=== PATIENT | male | born 1975 | race Caucasian/White ===

== ENCOUNTER → 2017-08-29 07:38 | Outpatient (CLI) | payer MEDICAID, SELFPAY ==
[2017-08-29 09:22] LABS: Alanine Aminotransferase 30 U/L (12-78); Albumin Level 3.9 gm/dL (3.4-5.0); Albumin/Globulin Ratio 1.3 (1.1-1.8); Alkaline Phosphatase 124 U/L (46-116); Anion Gap 13.5 mEq/L (5-15); Bilirubin,Total 0.4 mg/dL (0.2-1.0); Blood Urea Nitrogen 14 mg/dL (7-18); Calcium 8.8 mg/dL (8.5-10.1); Carbon Dioxide 27 mmol/L (21.0-32.0); Chloride 103 mmol/L (98-107); Chol/HDL Ratio 8.6 (1-3.5); Cholesterol 171 mg/dL (140-200); Creatinine,Serum 0.84 mg/dL (0.70-1.30); Estimated Glomerular Filt Rate 101 ml/min (>60); GFR (African American) 122 ML/MIN (>60); HDL Cholesterol 20 mg/dL (27-67); Potassium 4.5 mmoL/L (3.5-5.1); Sodium 139 mmol/L (136-145); Thyroid Stimulating Hormone 3.05 uIU/ml (0.358-3.740); Total Protein,Serum 6.9 gm/dL (6.4-8.2)
[2017-08-29 11:59] LABS: Aspartate Amino Transferase 12 U/L (15-37); Glucose 145 mg/dL (74-106); Triglycerides 647 mg/dL (30-200)
== END ==
PROVIDERS: Visit Provider Physician Assistant
DX: Z13.29 Encounter for screening for other suspected endocrine disorder (principal); Z13.220 Encounter for screening for lipoid disorders
CPT/HCPCS: 36415; 80053; 80061; 84443

== ENCOUNTER → 2018-01-26 13:43 | Outpatient (CLI) | payer OTHER, SELFPAY ==
--- NOTE | 2018-01-26 13:55 | XR_ITS ---
XR shoulder RT min 2V COMPARISON: Portable upright chest 05/27/2012 HISTORY: Right shoulder pain TECHNIQUE: 3 views right shoulder FINDINGS: The clavicle is intact. The AC joint appears normal. The humeral head and glenoid are normal and there are no soft tissue calcifications. IMPRESSION: Negative right shoulder
--- NOTE | 2018-01-26 13:55 | XR_ITS ---
XR hand RT min 3V HISTORY: Right hand pain ITS.REASON: ACUTE SHOULDER PAIN ORDERING PHYSICIAN: Ana Marvin MD PATIENT AGE: 42 years COMPARISON: None FINDINGS: There is a subtle cortical break at the base of the distal phalanx of the thumb consistent with a nondisplaced fracture... There is minor joint space narrowing of the IP joint and minor spurring at the base of the distal phalanx as well. There is mild diffuse soft tissue swelling of the hand particularly web space between the thumb and index finger. IMPRESSION: Nondisplaced fracture base of distal phalanx of the thumb otherwise grossly negative right hand
--- NOTE | 2018-01-26 13:55 | XR_ITS ---
XR elbow RT 2V COMPARISON: None HISTORY: Right elbow pain TECHNIQUE: AP lateral and oblique views FINDINGS: There is no fracture or dislocation. There is no abnormal fat pad sign. There are no soft tissue foreign bodies. IMPRESSION: Negative right elbow
== END ==
PROVIDERS: PCP Family Medicine; Visit Provider Emergency Medicine
DX: M25.511 Pain in right shoulder (principal)
CPT/HCPCS: 73030; 73070; 73130

== ENCOUNTER → 2018-03-12 14:03 | Outpatient (CLI) | payer BC, SELFPAY | PROVIDERS: PCP Emergency Medicine; Visit Provider Emergency Medicine | DX: R06.83 Snoring (principal) | CPT/HCPCS: 95806 ==

== ENCOUNTER → 2019-11-24 13:11 | Outpatient (CLI) | payer OTHER, SELFPAY ==
[2019-11-25 19:00] LABS: Covid-19 Nasal PCR Sendout UK Not Detected
== END ==
PROVIDERS: PCP Family Medicine; Visit Provider Internal Medicine Adolescent Medicine
DX: Z03.818 Encounter for observation for suspected exposure to other biological agents ruled out (principal)
CPT/HCPCS: U0003

== ENCOUNTER → 2021-08-20 08:47 | Outpatient (CLI) | payer OTHER, SELFPAY ==
[2021-08-20 10:05] LABS: Alanine Aminotransferase 49 U/L (12-78); Albumin Level 4.2 g/dl (3.5-5.0); Albumin/Globulin Ratio 1.8 (1.1-1.8); Alkaline Phosphatase 81 U/L (38-126); Anion Gap 10.4 mEq/L (5-15); Aspartate Amino Transferase 33 U/L (17-59); Bilirubin,Total 0.4 mg/dl (0.2-1.3); Blood Urea Nitrogen 15 mg/dl (9-20); Calcium 9.1 mg/dl (8.4-10.2); Carbon Dioxide 24 mmol/L (22.0-30.0); Chloride 106 mmol/L (98-107); Chol/HDL Ratio 8.5 (1-3.5); Cholesterol 187 mg/dl (140-200); Estimated Glomerular Filt Rate 105 ml/min (>60); GFR (African American) 127 ML/MIN (>60); Globulin 2.4 g/dL (1.3-3.2); Glucose 148 mg/dl (74-100); HDL Cholesterol 22 mg/dl (40-60); Potassium 4.4 mmoL/L (3.5-5.1); Sodium 136 mmol/L (136-145); Total Protein,Serum 6.6 g/dl (6.3-8.2); Triglycerides 296 mg/dl (30-150); VLDL Cholesterol 59 mg/dL (0-40)
[2021-08-20 10:16] LABS: Direct LDL Cholesterol 106.32 mg/dL (100-129)
== END ==
PROVIDERS: Visit Provider Family Medicine
DX: E78.1 Pure hyperglyceridemia (principal); F41.8 Other specified anxiety disorders
CPT/HCPCS: 36415; 80053; 80061

== ENCOUNTER 2023-05-27 10:16 | Outpatient (CLI) | payer OTHER, SELFPAY ==
[2023-05-27 11:15] LABS: Hemoglobin A1C 6.9 % (4.0-6.0)
[2023-05-27 11:20] LABS: Chloride 102 mmol/L (98-107); Sodium 136 mmol/L (136-145)
[2023-05-27 11:21] LABS: Potassium 3.9 mmoL/L (3.5-5.1)
[2023-05-27 11:23] LABS: Alanine Aminotransferase 47 U/L (12-78); Albumin Level 4.2 g/dl (3.5-5.0); Albumin/Globulin Ratio 1.6 (1.1-1.8); Alkaline Phosphatase 104 U/L (38-126); Anion Gap 12.9 mEq/L (5-15); Aspartate Amino Transferase 33 U/L (17-59); Bilirubin,Total 0.6 mg/dl (0.2-1.3); Blood Urea Nitrogen 11 mg/dl (9-20); Carbon Dioxide 25 mmol/L (22.0-30.0); Cholesterol 133 mg/dl (140-200); Estimated Glomerular Filt Rate 91 ml/min (>60); GFR (African American) 110 ML/MIN (>60); Globulin 2.6 g/dL (1.3-3.2); Total Protein,Serum 6.8 g/dl (6.3-8.2); Triglycerides 142 mg/dl (30-150); VLDL Cholesterol 28 mg/dL (0-40)
[2023-05-27 11:24] LABS: Calcium 8.8 mg/dl (8.4-10.2); Chol/HDL Ratio 7.8 (1-3.5); Glucose 116 mg/dl (74-100); HDL Cholesterol 17 mg/dl (40-60)
[2023-05-27 11:55] LABS: Thyroid Stimulating Hormone 1.79 uIU/mL (0.465-4.68)
[2023-05-29 12:15] LABS: H. pylori Breath Test Negative (Negative)
== END 2023-05-27 23:59 ==
LOC: LAB 10:18
PROVIDERS: PCP Family Medicine; Visit Provider Family Medicine
DX: K21.9 Gastro-esophageal reflux disease without esophagitis (principal); R12 Heartburn; E78.5 Hyperlipidemia, unspecified; R73.01 Impaired fasting glucose
CPT/HCPCS: 36415; 80053; 80061; 83013; 83036; 84443

== ENCOUNTER 2023-12-22 15:51 | Outpatient (CLI) | payer OTHER, SELFPAY ==
--- NOTE | 2023-12-22 15:54 | XR_ITS ---
FINAL REPORT CLINICAL HISTORY: PAIN, old injury new pain FINDINGS: Right knee Three views were obtained. There is no acute fracture or dislocation. There are mild and moderate degenerative changes. Medial compartment narrowing is identified. There is a small joint effusion. IMPRESSION: Degenerative changes and small joint effusion. Reviewed, Interpreted and Dictated by Drake George III, MD Transcribed by Jocelyn Encinas Authenticated and [facility]
== END 2023-12-22 23:59 | disposition home or self-care (01) ==
LOC: RAD 15:51
PROVIDERS: PCP Physician Assistant; Visit Provider Physician Assistant
DX: M25.561 Pain in right knee (principal)
CPT/HCPCS: 73562

== ENCOUNTER 2024-01-10 17:05 | Outpatient (CLI) | payer OTHER, SELFPAY ==
--- NOTE | 2024-01-10 17:05 | MR_ITS ---
PROCEDURE INFORMATION: Exam: MR Right Lower Extremity Joint Without Contrast, Knee Exam date and time: 01/10/2024 5:29 PM Age: 48 years old Clinical indication: Pain; Knee; Right; Additional info: RT knee pain TECHNIQUE: Imaging protocol: Magnetic resonance imaging of the right lower extremity joint without contrast. Exam focused on the knee. COMPARISON: CR XR KNEE RT 3V 12/22/2023 4:07 PM FINDINGS: Bones/joints: There is an impaction fracture of the medial femoral condyle with associated marrow signal changes. There is severe chondromalacia within the medial femorotibial compartment. 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 There is a small joint effusion. Medial meniscus: The medial meniscus appears chronically torn and partially extruded. Lateral meniscus: Unremarkable. No tear. Anterior cruciate ligament: Unremarkable. No tear. Posterior cruciate ligament: There is thickening and increased T2 signal within the posterior cruciate ligament which likely reflects some element of tendinopathy. Medial capsule and supporting structures: Unremarkable. No tear. Lateral capsule and supporting structures: Unremarkable. No tear. Extensor mechanism of knee: Unremarkable. No tear. Soft tissues: Unremarkable. IMPRESSION: 1. Nondisplaced impacted fracture in the medial femoral condyle with associated edema. 2. 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 3. Thickening and increased T2 signal within the posterior cruciate ligament suggest tendinopathy and possible intrasubstance tearing.
== END 2024-01-10 23:59 | disposition home or self-care (01) ==
LOC: RAD 17:05
PROVIDERS: PCP Physician Assistant; Visit Provider Physician Assistant
DX: M25.561 Pain in right knee (principal); M23.91 Unspecified internal derangement of right knee
CPT/HCPCS: 73721

== ENCOUNTER → 2024-06-13 12:03 | Day surgery (SDC) | payer OTHER, SELFPAY ==
[2024-06-13 12:24] VITALS: BMI 32.7
[2024-06-13] MEDS: LACTATED RINGERS 1000ML 1,000 ML 50 ML IV (12:25)
[2024-06-13 12:29] VITALS: BP 126/76; PULSE 83; RESP 18; TEMP 36.3; O2SAT 98
[2024-06-13 12:45] LABS: POC Glucose,Bedside 106 (70-110)
[2024-06-13 14:03] VITALS: O2SAT 99
--- NOTE | 2024-06-13 14:03 | P.PNANES_ITS ---
[facility] Disclaimer: The information contained in this section may have been updated after the patient was seen, as this information can be updated by other users. Medical History Anxiety CASANDRA (obstructive sleep apnea) Surgical History History of cholecystectomy Family History Other Diabetes Hyperlipidemia Hypertension Stroke Social History Smoking Status: Current every day smoker tobacco type: e-cigarettes alcohol intake: former substance use type: denies use current occupational status: employed Travel in the last 8 weeks: None household members: spouse and family housing: house Have you lived/traveled outside [place] in past 30 days?: No Contact w/someone who lives/traveled outside US past 30 days?: No Exposure to someone with infectious disease in past 14 days?: No Do you have a fever (greater than 100.4 F or 38 C)?: No Have you tested positive for COVID-19: No Exposed to someone with COVID-19 in past 14 days?: No Do you have a sore throat?: No Do you have a cough?: No Do you have any weakness?: No Do you have any diarrhea?: No Are you experiencing any unusual bleeding?: No Do you have any muscle aches/pain?: No Do you have any abdominal pain?: No Are you experiencing loss of taste or smell?: No [facility] Anesthesia Checklist Patient Identification Patient Identification: Arm Band Structural Data Admitted From: Home Planned Operative Procedure/s: EGD Consent for Planned Operative Procedure(s) Verified: Yes Verified Documents: Surgical Consent and History and Physical NPO Status Verified Time NPO: 00:00 Additional verifications Anesthesia Reactions: No Hx Blood Transfusions: No Blood Transfusion Reaction: No Airway Assessment Mallampati Score:: Class II C-Spine Mobility Assessed: Yes TMJ Mobility Assessed: Yes Dentition: Good Dentition Neurological Assessment Level of Consciousness: Awake, Alert and Appropriate Anesthesia Plan Anesthesia Risk discussed: Yes Anesthesia Plan: Verified ASA Class: II Anesthesia Type: MAC
--- NOTE | 2024-06-13 14:09 | P.HP_ITS ---
History of Present Illness *Admission Date: 06/13/24 *Reason for visit:: Dyspepsia *History of present illness: Mr. Oconnor is a 48-year-old gentleman with longstanding dyspepsia who is here for diagnostic EGD. The examination is deemed medically necessary for upper endoscopy. The patient has been seen, interviewed and examined prior to the procedure by both myself and the anesthesia provider. [facility] Disclaimer: The information contained in this section may have been updated after the patient was seen, as this information can be updated by other users. Medical History Anxiety CASANDRA (obstructive sleep apnea) Surgical History History of cholecystectomy Family History Other Diabetes Hyperlipidemia Hypertension Stroke Social History Smoking Status: Current every day smoker tobacco type: e-cigarettes alcohol intake: former substance use type: denies use current occupational status: employed Travel in the last 8 weeks: None household members: spouse and family housing: house Have you lived/traveled outside US in past 30 days?: No Contact w/someone who lives/traveled outside [place] past 30 days?: No Exposure to someone with infectious disease in past 14 days?: No Do you have a fever (greater than 100.4 F or 38 C)?: No Have you tested positive for COVID-19: No Exposed to someone with COVID-19 in past 14 days?: No Do you have a sore throat?: No Do you have a cough?: No Do you have any weakness?: No Do you have any diarrhea?: No Are you experiencing any unusual bleeding?: No Do you have any muscle aches/pain?: No Do you have any abdominal pain?: No Are you experiencing loss of taste or smell?: No Other Medical History Have you received the Flu Vaccine for this season: No Have you received the Pneumonia Vaccine: No Review of Systems Review of Systems Review of systems (narrative): Negative *Cardiovascular Comments: Negative *Gastrointestinal Comments: Negative *Genitourinary Comments: Negative *Musculoskeletal Comments: Negative *Neurologic Comments: Negative Meds Home Medications and Allergies Home Medications ?Medication ?Instructions ?Recorded ?Confirmed ?Type citalopram 40 mg tablet 40 mg PO DAILY Depression 08/25/17 06/12/24 History esomeprazole magnesium 40 mg 40 mg PO DAILY 05/28/18 06/12/24 History capsule,delayed release (Nexium) fenofibrate nanocrystallized 145 145 mg PO DAILY 06/02/21 06/12/24 History mg tablet gabapentin 400 mg capsule 400 mg PO TID 09/07/23 06/12/24 History metformin 500 mg tablet,extended 500 mg PO ONCE 04/10/24 06/12/24 History release 24 hr New Prescriptions to Start Prescriptions: Allergies Allergy/AdvReac Type Severity Reaction Status Date / Time Penicillins Allergy Unknown Verified 06/13/24 12:26 allergy reaction Exam Data for Last 24 hours Vital signs and Labs for Last 24 Hours: Temp Pulse Resp BP Pulse Ox O2 Del Method O2 Flow Rate 97.4 F L 83 18 126/76 98 Nasal Cannula 5 06/13/24 12:29 06/13/24 12:29 06/13/24 12:29 06/13/24 12:29 06/13/24 12:29 06/13/24 14:03 06/13/24 14:03 Laboratory Results - last 24 hr 06/13/24 12:32: POC Glucose 106 I & O for Last 24 hours: Intake & Output 06/10/24 06/11/24 06/12/24 06/13/24 23:59 23:59 23:59 23:59 Weight 228 lb *Routine HEENT Exam Head: Present normocephalic Eye: Present EOMI and PERRL ENT: Present mucous membranes moist *Routine Neck Exam Neck: Present supple *Routine Respiratory Exam Respiratory: Present CTA bilaterally *Routine Cardiovascular Exam Cardiovascular: Present RRR *Routine Abdominal Exam Abdominal: Present soft and normoactive bowel sounds; Absent tenderness *Routine Rectal Exam Rectal:: deferred *Routine Genitalia Exam Genitalia:: deferred *Routine Extremities Exam Extremities: Absent cyanosis, clubbing or edema *Routine Skin Exam Skin: Present warm; Absent rash *Routine Neurological Exam Neurological: Present alert and oriented X3 Assessment and Plan *Assessment and plan (1) Dyspepsia: Status: Acute Category: Medical Code(s): R10.13 - Epigastric pain (2) Epigastric discomfort: Status: Acute Category: Medical Code(s): R10.13 - Epigastric pain Plan A/P: 1. Dyspepsia/epigastric abdominal discomfort postprandially is the preprocedural diagnosis. The patient will be anesthetized/sedated using MAC sedation. The patient has been seen and examined. Cardiac and lung assessment prior to the examination is stable. Proceed with planned upper endoscopy
--- NOTE | 2024-06-13 14:11 | [facility].PROCNOTE ---
[facility] Procedure Note Date: 06/13/24 Time: 14:17 Procedure Note:: Upper Endoscopy Procedure Report: Esophagogastroduodenoscopy with cold biopsies Endoscopost: Desmond Griffin II, MD Referring Physician: Paz Cameron PA-C Date of Procedure: June 13, 2024 Equipment: Olympus GIF 190 standard upper endoscope Sedation: MAC sedation Indications: Mr. Oconnor is a 48-year-old gentleman who has had longstanding dyspepsia with burning epigastric discomfort and states that this is a acid feeling . The patient has been on Nexium which controlled this for years but recently after eating spicy foods, he gets significant epigastric discomfort. Belching relieves the symptoms. He does get some bloating. He does feel that stress plays a role and gets more of this with anxiety which he is dealing with. He reports some intermittent nausea but no early satiety. He reports regular bowel function but does get some intermittent diarrhea. He reports no obstipation or incomplete defecation. He does report some excessive wiping. He reports no melena or bright red blood per rectum. He did have an EGD about 10 years ago and had some gastritis which was felt to be related to Advil. He has tried to reduce intake of soda/carbonated beverages but still drinks diet Mountain Dew. He reports no significant heartburn or reflux and has no dysphagia. Procedure: Prior to the procedure, a history and physical exam was performed, and patient's medications and allergies were reviewed. The risks, benefits and alternatives of the sedation and procedure were discussed with the patient. All questions were answered and informed consent was obtained. The patient was brought to the procedure room. Patient identification and proposed procedure were verified by the physician and the nurse. The patient was placed in a left lateral decubitus position and the scope was passed under direct vision. Throughout the procedure, the patient's blood pressure, pulse, and oxygen saturations were monitored continuously. The upper GI endoscopy was accomplished without difficulty. The patient tolerated the procedure well. Findings: The scope was passed directly into the upper esophagus and advanced to the third portion of the duodenum. The post bulbar duodenum and duodenal bulb were normal with normal mucosa and conniventes. The scope was withdrawn through a normal duodenal bulb and pylorus into the stomach. There was some mild linear reactive gastropathy of the antrum. There was some very mild chronic gastritis of the body and fundus. Biopsies were taken from the antrum and proximal lesser curvature to rule out H. pylori. Upon retroflexion there was no hiatal hernia. The scope was then withdrawn into the esophagus. There was no evidence of reflux esophagitis or Ann's. The remainder of the esophageal mucosa was normal. Impression: 1. Mild linear gastropathy of antrum and mild proximal chronic gastritis Plan: I will follow-up the biopsies to rule out H. pylori. I do suspect that most of his symptoms of dyspepsia are related to and driven by lower intestinal gas pressure gradients/high gas pressure buildup resulting in backflow of bile and peptic fluid from the duodenum into the stomach (duodenal reflux). This gas production (carbon dioxide, hydrogen, methane, etc.) from the lower intestinal tract is the byproduct of colonic bacterial fermentation. This colonic fermentation occurs when there is more carbohydrate (dietary starches, sugars and high residue plant fiber) substrate that does not get digested (in the middle or small intestine) or occurs when there is colonic fecal buildup and colonic bacterial overgrowth. This indeed leads to bloating and the gas pressure buildup with gas pressure gradients that do drive backflow and dyspepsia. We will discuss additional dietary measures and treatment options.
[2024-06-13 14:17] VITALS: BP 122/68; PULSE 74; RESP 16; TEMP 36.5; O2SAT 94
[2024-06-13 14:27] VITALS: BP 152/70; PULSE 76; RESP 18; O2SAT 95
[2024-06-13 14:37] VITALS: BP 118/85; PULSE 71; RESP 18; O2SAT 96
[2024-06-13 14:47] VITALS: BP 125/71; PULSE 68; RESP 18; TEMP 36.5; O2SAT 95
== END | disposition home or self-care (01) ==
PROVIDERS: PCP Physician Assistant; Visit Provider Internal Medicine Gastroenterology
PROC: 0DJ08ZZ Inspection of Upper Intestinal Tract, Via Natural or Artificial Opening Endoscopic (ICD-10-PCS; CPT 43239; principal; 2024-06-13 13:30)
DX: R10.13 Epigastric pain (principal); K31.9 Disease of stomach and duodenum, unspecified; K29.70 Gastritis, unspecified, without bleeding
CPT/HCPCS: 43239; 82962; J7120

== ENCOUNTER 2025-01-03 09:19 | Emergency (ER) | payer OTHER, SELFPAY ==
--- OUTSIDE RECORDS SUMMARY | 2024-06-19 05:00 | XMS_ITS ---
Author Organization [facility] Address [address] [place] [id number] Care Team Providers Care Desulphurizer Operator Name Role Phone Sathya Faria Primary Care Provider [phone] Cherie Holm Unavailable [phone] Paz Cameron Unavailable [phone] Allergies Allergen (clinical drug ingredient) Drug/Non Drug Allergy documented on EMR Reaction Allergy Type Onset Date Status Substance with penicillin structure and antibacterial mechanism of action (substance) Penicillins Unknown Drug Allergy Active Results Component Value Reference Range Notes Rapid Strep- Inhouse Reviewed date:06/19/2024 12:43:26 PM Interpretation: Performing Lab: Notes/Report: strep test Pos CBC Venipuncture (in house) Reviewed date:06/19/2024 12:43:36 PM Interpretation: Performing Lab: Notes/Report: wbc 4.2 3.5 - 10 lymph 22.3% 15 - 50 mid 7.3% 2 - 15 gran 70.4% 35 - 80 rbc 6.01 3.5 - 5.5 hgb 17.6 11.5 - 16.5 hct 52.7 35 - 55 mcv 87.6 75 - 100 mch 29.3 25 - 35 mchc 33.4 31 - 38 platlet 189 100 - 400 Glycohemoglobin A1c (in hous e) Reviewed date:06/25/2024 10:47:49 AM Interpretation: Performing Lab: Notes/Report: glycohemoglobin 6.8% 5 - 6.5 % P-Comprehensive Metabolic Pa fernando (CMP) Reviewed date:06/26/2024 01:14:55 PM Interpretation: Performing Lab: Notes/Report: Test performed by [facility] [address] [place] [address] , [address], [place] [address] Aries Huerta MD, Prom Burn Off Operator CLIA: [id number] Sodium 138 135-145 mmol/L Potassium 4.7 3.5-5.3 mmol/L Chloride 103 97-108 mmol/L CO2 26 22-32 mmol/L Glucose 119 65-99 mg/dL BUN 14 6-20 mg/dL Creatinine 0.82 0.70-1.30 mg/dL Calcium 9.7 8.6-10.4 mg/dL eGFR by Creatinine 109 >59 mL/min/1.73m2 Protein 7.2 6.0-8.3 g/dL Albumin 4.6 3.5-5.3 g/dL Alkaline Phosphatase 78 40-129 IU/L ALT (SGPT) 27 <5-55 IU/L AST (SGOT) 18 <5-46 IU/L Bilirubin, Total 0.2 <0.2-1.2 mg/dL A/G Ratio 1.8 1.1-2.5 P-Lipid Panel Reviewed date:06/26/2024 01:15:02 PM Interpretation: Performing Lab: Notes/Report: Test performed by [facility] [address] [place] [address] , [address], [place] [address] Aries Huerta MD, Prom Burn Off Operator CLIA: [id number] Cholesterol 149 <200 mg/dL Triglycerides 132 <150 mg/dL HDL Cholesterol 26 >39 mg/dL Cholesterol / HDL Ratio 5.73 0.00-4.99 Ratio Non-HDL Cholesterol 123 <130 mg/dL LDL Cholesterol (Calculation) 97 <130 mg/dL LDL Cholesterol Levels* Less than 100 mg/dL Optimal 100 to 129 mg/dL Near Optimal/ Above Optimal 130 to 159 mg/dL Borderline High 160 to 189 mg/dL High 190 mg/dL and above Very High * Categories as recommended by the 2004 ATPIII guidelines LDL/HDL Ratio 3.7 <3.3 Ratio LDL Cholesterol Patient History Test Date: 12/20/2023 LDL Results: 104 Units: mg/dL % Change: +50% Test Date: 03/20/2024 LDL Results: 102 Units: mg/dL % Change: -1% Test Date: 06/19/2024 LDL Results: 97 Units: mg/dL % Change: -4% REASON FOR VISIT 3 months Medications Medication SIG (Take, Route, Frequency, Duration) Notes Start Date End Date Status Citalopram Hydrobromide 40 mg take one tablet by mouth every day Orally Once a day; Duration: 90 days Active metFORMIN HCl ER 500 MG 1 tablet with ev ening meal Orally Once a day; Duration: 90 days Active Esomeprazole Magnesium 40 mg 1 capsule Orally once daily; Duration: 90 days Active Gabapentin 400 MG 1 cap(s) orally 3 ti mes a day 05/10/2024 Active Zithromax Z-Rocky 250 MG 2 pills first day then one daily for 4 days orally as directed; Duration: 5 days 06/19/2024 Active Fenofibrate 145 mg take one tablet by m outh every day Orally once daily; Duration: 90 days Active CareTouch CPAP & BIPAP Hose 1 DIRECTED Active Social History Tobacco Use: Social History Observation Description Date Details (start date - stop date) Current Smoker NA - NA CURRENT TOBACCO USE: Question Answer Notes Are you a: current smoker How many cigarettes a day do you smoke? 5 or les s Vital Signs Blood pressure systolic 134 mm Hg 06/19/19 25 Blood pressure diastolic 90 mm Hg 025 Heart Rate 76 /min 06/19/2024 Height 71.50 in 06/19/2024 Weight 228.4 lbs 06/19/2024 BMI 31.41 kg/m2 06/19/2024 Encounters Encounter Location Date Provider Diagnosis [facility] [address], [place] [phone] 06/19/2024 Paz Cameron Strep pharyngitis J0 2.0 ; Hypertriglyceridemia E78.1 ; Depression with anxiety F41.8 ; Gastroesophageal reflux disease without esophagitis K21.9 ; Mild obstructive sleep apnea G47.33 and Type 2 diabetes, HbA1c goal < 7% E11.9 Assessments Encounter Date Diagnosis (ICD Code) Assessment Notes Treatment Notes Treatment Clinical Notes Section Notes 06/19/2024 Strep pharyngitis (ICD-10 - J02.0) 06/19/2024 Hypertriglyceridemia (ICD-10 - E78.1) 06/19/2024 Depression with anxi ety (ICD-10 - F41.8) 06/19/2024 Gastroesophageal ref lux disease without esophagitis (ICD-10 - K21.9) 06/19/2024 Mild obstructive sle ep apnea (ICD-10 - G47.33) 06/19/2024 Type 2 diabetes, HbA 1c goal < 7% (ICD-10 - E11.9) Plan Of Treatment Medication Medication Name Sig Start Date Stop Date Notes Zithromax Z-Rocky 250 MG 2 pills first day then one daily for 4 days orally as directed; Duration: 5 days 06/19/2024 Next Appt Details Follow Up: via phone to repo rt test results, Reason: Progress Notes * LILIANA OCONNOR:1975 ([age] yo M)Acc No.[id number]:06/19/2024 Progress Notes Patient: DB MIKE Provider: MIKE Bender :1975 A ge:48 Y S ex:Male Date:06/19/2024 Address:[address], [place] , [id number] Pcp:Sathya Faria Subjective: * Chief Complaints: * 1 . 3 months. * HPI: C ardiology: The patient is here for a 3 month check up. Pt states he has not felt good since Monday. Pt states he started with a low grade fever and cough. Pt states he started Monday evening with very sore throat. Pt is fasting except for some tea with splenda. Denies : Chest Pain. D enies : Short of Breath. D enies : Dizziness. D enies : Palpitations. * ROS: D ERMATOLOGY: no R jaison. n o H grecia. G ASTROENTEROLOGY: no N ausea. n o V omiting. n o D iarrhea.? U ROLOGY: no D ifficulty urinating. n o B lood in urine. * Medical History: A nxiety, Esophageal reflux, Palpitations, L5-S1 disc bulge, MRI 2007, Low back pain, Lumbar facet arthropathy, Hypertriglyceridemia, CASANDRA. * Family History: F ather: alive, diabetes. M other: alive. P aternal Grand Father: diabetes. M aternal Grand Father: diabetes. 1 brother(s) . 3 son(s) - healthy. . Brother DM. * Social History: C URRENT TOBACCO USE A re you a: c urrent smoker, H ow many cigarettes a day do you smoke? 5 or less. C affeine: yes, frequency:. Past smoking status: yes. Alcohol: rare. * Medications: T aking CareTouch CPAP & BIPAP Hose MACHINE AND SUPPLIES 1 DIRECTED , Taking Fenofibrate 145 mg Tablet take one tablet by mouth every day Orally once daily , Taking Citalopram Hydrobromide 40 mg Tablet take one tablet by mouth every day Orally Once a day , Taking metFORMIN HCl ER 500 MG Tablet Extended Release 24 Hour 1 tablet with evening meal Orally Once a day , Taking Gabapentin 400 MG Capsule 1 cap(s) orally 3 times a day , Taking Esomeprazole Magnesium 40 mg Capsule Delayed Release 1 capsule Orally once daily , Discontinued Ozempic (0.25 or 0.5 MG/DOSE) 2 MG/3ML Solution Pen-injector 0.25 mg Subcutaneous once a week , Medication List reviewed and reconciled with the patient * Allergies: P enicillins. Objective: * Vitals: W t:228.4, Temp:98.4, BP:134/90, HR:76, Nurse:JOSE RAFAEL, Ht: 71.50, BMI:31.41. * Examination: G eneral Examination: General Appearance: N AD. H EENT: sclera and conjunctiva clear, PERRLA, TM's normal, translucent. O ral cavity: some erythema. N slim: ? supple, some lymphadenopathy. C hest: n ormal shape and expansion. H eart: R SR. L ungs: c lear to auscultation. A bdomen: bowel sounds present, soft and nontender, no organomegaly or masses, no guarding or rigidity. N eurologic Exam: I ntact, gait normal. S kin: n ormal, no rash. P eripheral pulses: n ormal (2+) bilaterally. E xtremities: n o leg edema. Assessment: * Assessment: 1. S trep pharyngitis - J02.0 (Primary) 2 . H ypertriglyceridemia - E78.1? 3. D epression with anxiety - F41.8 4 . G astroesophageal reflux disease without esophagitis - K21.9 5 . M ild obstructive sleep apnea - G47.33 6 . T ype 2 diabetes, HbA1c goal < 7% - E11.9 Plan: * Treatment: Value Reference Range s trep test Pos * Pat Haji 06/19/2024 9:15 :52 AM > , Provider reviewed results while patient in office.Paz Cameron 06/19/2024 12:43:23 PM > ?LAB: CBC Venipuncture (in house) (Collection Date & Time - 06/19/2024)* Value Reference Range w bc 4.2 3.5 - 10 * l ymph 22.3% 15 - 50 * m id 7.3% 2 - 15 * g ran 70.4% 35 - 80 * r bc 6.01 3.5 - 5.5 * h gb 17.6 11.5 - 16.5 * h ct 52.7 35 - 55 * m cv 87.6 75 - 100 * m ch 29.3 25 - 35 * m chc 33.4 31 - 38 * p latlet 189 100 - 400 * Pat Haji 06/19/2024 12:4 2:01 PM >Paz Cameron 06/19/2024 12:43:33 PM > 2.?Hypertriglyceridemia?LAB: P-Lipid Panel (Collection Date & Time - 06/19/2024 08:41 AM)* Value Reference Range C holesterol / HDL Ratio 5.73 H 0.00-4.99 - Ratio * C holesterol 149 <200 - mg/dL * H DL Cholesterol 26 L >39 - mg/dL * L DL Cholesterol (Calculation) 97 <130 - mg/d L * L DL/HDL Ratio 3.7 H <3.3 - Ratio * N on-HDL Cholesterol 123 <130 - mg/dL * T riglycerides 132 <150 - mg/dL * Paz Cameron 06/25/2024 10 :47:40 AM > see TE 3.?Type 2 diabetes, HbA1c goal < 7%?LAB: P-Comprehensive Metabolic Panel (CMP) (Collection Date & Time - 06/19/2024 08:41 AM)* Value Reference Range A /G Ratio 1.8 1.1-2.5 - * A lbumin 4.6 3.5-5.3 - g/dL * A lkaline Phosphatase 78 40-129 - IU/L * A LT (SGPT) 27 <5-55 - IU/L * A ST (SGOT) 18 <5-46 - IU/L * B ilirubin, Total 0.2 <0.2-1.2 - mg/dL * B UN 14 6-20 - mg/dL * C alcium 9.7 8.6-10.4 - mg/dL * C hloride 103 97-108 - mmol/L * C O2 26 22-32 - mmol/L * C reatinine 0.82 0.70-1.30 - mg/dL * G lucose 119 H 65-99 - mg/dL * P otassium 4.7 3.5-5.3 - mmol/L * S odium 138 135-145 - mmol/L * P rotein 7.2 6.0-8.3 - g/dL * e GFR by Creatinine 109 >59 - mL/min/1.73m2 * Paz Cameron 06/25/2024 10 :47:40 AM > see TE ?LAB: Glycohemoglobin A1c (in house) (Collection Date & Time - 06/19/2024)* Value Reference Range g lycohemoglobin 6.8% 5 - 6.5 % * Pat Haji 06/19/2024 12:4 4:06 PM > Paz Cameron 06/25/2024 10:47:40 AM > see TE * Procedure Codes: 8 7880 STREP A ASSAY W/OPTIC, Modifiers: QW , 39184 CAPILLARY BLOOD DRAW, 23994 GLYCATED HEMOGLOBIN TEST, Modifiers: QW , 36373 CBC WITH AUTO DIFF, 51468 VENIPUNCT, ROUTINE*, 3075F SYST BP GE 130 - 139MM HG, 3080F DIAST BP = 90 MM HG * Follow Up: v ia phone to report test results * Images: Billing Information: * Visit Code: 45498 Office Visit, Est Pt., Level 4. * Procedure Codes: 78877 STREP A ASSAY W/OPTIC. Modifiers: QW 13192 CAPILLARY BLOOD DRAW. 50416 GLYCATED HEMOGLOBIN TEST. Modifiers: QW 60976 CBC WITH AUTO DIFF. 42141 VENIPUNCT, ROUTINE*. 3075F SYST BP GE 130 - 139MM HG. 3080F DIAST BP = 90 MM HG. * Electronic signature of MIKE Walters on 01/03/2025 at 09:44 AM EDT Sign off status: Pending * Provider: MIKE Bender Date: 0 06/19/2024 Generated for Luis Antonio lema/Fabernabe/eTransmitting on: 0 01/03/2025 09:44 AM EDT History and Physical Notes * HPI (History of Present Illness) Category Sub-Category Detail Notes Category Not es Cardiology Short of Breath Chest Pain Palpitations Dizziness Examination Category Sub-Category Detail Notes Category Not es General Examination HEENT: sclera and c onjunctiva clear, PERRLA, TM's normal, translucent Heart: RSR Lungs: clear to auscultatio n Abdomen: bowel sounds present , soft and nontender, no organomegaly or masses, no guarding or rigidity Extremities: no leg edema General Appearance: NAD Skin: normal, no rash Neurologic Exam: Intact, gait normal Neck: supple, some lymphad enopathy Oral cavity: some erythema Peripheral pulses: normal (2+) bilatera lly Chest: normal shape and exp ansion
--- OUTSIDE RECORDS SUMMARY | 2024-06-26 06:15 | XMS_ITS ---
Author Organization [facility] Address [address] [facility] [address] [place] [id number] Care Team Providers Care Wharf Attendant Name Role Phone Sathya Faria Primary Care Provider Cherie Holm Unavailable [phone] Paz Cameron Unavailable [phone] Allergies Allergen (clinical drug ingredient) Drug/Non Drug Allergy documented on EMR Reaction Allergy Type Onset Date Status Substance with penicillin structure and antibacterial mechanism of action (substance) Penicillins Unknown Drug Allergy Active Results Component Value Reference Range Notes Influenza Screen (in house) Reviewed date:06/26/2024 01:14:32 PM Interpretation: Performing Lab: Notes/Report: results Neg Rapid Strep- Inhouse Reviewed date:06/26/2024 01:14:32 PM Interpretation: Performing Lab: Notes/Report: strep test Neg CBC Fingerstick (in house) Reviewed date:06/26/2024 01:14:32 PM Interpretation: Performing Lab: Notes/Report: wbc 4.3 3.5 - 10 lym 36.7% 15 - 50 mid 7.1% 2 - 15 gran 56.2% 35 - 80 rbc 4.73 3.5 - 5.5 hgb 14.0 11.5 - 16.5 hct 41.3 35 - 55 mcv 87.1 75 - 100 mch 29.6 25 - 35 mchc 34.0 31 - 38 plat 262 100 - 400 Covid test (in house) Reviewed date:06/26/2024 01:14:32 PM Interpretation: Performing Lab: Notes/Report: Result: Neg REASON FOR VISIT Throat Sore, Still Red and Abnormal Medications Medication SIG (Take, Route, Frequency, Duration) Notes Start Date End Date Status CareTouch CPAP & BIPAP Hose 1 DIRECTED Active Medrol 4 MG as directed orally d aily; Duration: 6 days 06/26/2024 Active metFORMIN HCl ER 500 MG 1 tablet with ev ening meal Orally Once a day; Duration: 90 days Active Citalopram Hydrobromide 40 mg take one tablet by mouth every day Orally Once a day; Duration: 90 days Active Fenofibrate 145 mg take one tablet by m outh every day Orally once daily; Duration: 90 days Active Esomeprazole Magnesium 40 mg 1 capsule Orally once daily; Duration: 90 days Active Gabapentin 400 MG 1 cap(s) orally 3 ti mes a day 05/10/2024 Active Social History Tobacco Use: Social History Observation Description Date Details (start date - stop date) Current Smoker NA - NA CURRENT TOBACCO USE: Question Answer Notes Are you a: current smoker How many cigarettes a day do you smoke? 5 or les s Vital Signs Blood pressure systolic 130 mm Hg 06/26/19 25 Blood pressure diastolic 90 mm Hg 025 Heart Rate 80 /min 06/26/2024 Height 71.50 in 06/26/2024 Weight 228.4 lbs 06/26/2024 BMI 31.41 kg/m2 06/26/2024 Encounters Encounter Location Date Provider Diagnosis [facility] [address] [id number] 06/26/2024 Paz Cameron Acute URI J06.9 Assessments Encounter Date Diagnosis (ICD Code) Assessment Notes Treatment Notes Treatment Clinical Notes Section Notes 06/26/2024 Acute URI (ICD-10 - J06.9) Plan Of Treatment Medication Medication Name Sig Start Date Stop Date Notes Medrol 4 MG as directed orally daily; Duration: 6 days 04/2025 Next Appt Details Follow Up: prn, Reason: Progress Notes * DB OCONNORDOB:1975 ([age] yo M)Acc No.[id number]:06/26/2024 Progress Notes Patient: DB MIKE Provider: MIKE Bender :1975 A ge:48 Y S ex:Male Date:06/26/2024 Address:[address] [place] [address] Rd, [place] , [id number] Pcp:Sathya Faria Subjective: * Chief Complaints: * 1 . Throat Sore, Still Red and Abnormal. * HPI: E NT/respiratory: The pt is here for a follow up on Strep throat. Pt states the throat is still red and swollen but not as sore. Pt states he has finished the antibiotics. 48 year old male presents with c/o sore throat. Denies : cough. D enies : Fever. * ROS: D ERMATOLOGY: no R jaison. [...] 1 capsule Orally once daily , Discontinued Zithromax Z-Rocky 250 MG Tablet 2 pills first day then one daily for 4 days orally as directed , Medication List reviewed and reconciled with the patient * Allergies: P enicillins. Objective: * Vitals: W t:228.4, Temp:98.4, BP:130/90, HR:80, Nurse:JOSE RAFAEL, Ht: 71.50, BMI:31.41. * Examination: E NT/Respiratory: General Appearance: N AD. E ars: a uditory canals normal bilaterally, TM's WNL. N ose : clear rhinorrhea. S inuses : non tender bilaterally. O ral cavity : erythema without exudate on pharynx, less than when previously examined. N slim : supple, bilateral tender lymphadenopathy. H eart : R RR, normal S1 S2, no murmurs. L ungs: c lear to auscultation bilaterally. Assessment: * Assessment: 1. Sade phillip URI - J06.9 (Primary) Plan: * Treatment: Value Reference Range r esults Neg * Pat Haji 06/26/2024 11: 19:26 AM > , Provider reviewed results while patient in office. ?LAB: Rapid Strep- Inhouse (Collection Date & Time - 06/26/2024)* Value Reference Range s trep test Neg * Pat Haji 06/26/2024 11: 20:17 AM > , Provider reviewed results while patient in office. ?LAB: CBC Fingerstick (in house) (Collection Date & Time - 06/26/2024)* Value Reference Range w bc 4.3 3.5 - 10 * l ym 36.7% 15 - 50 * m id 7.1% 2 - 15 * g ran 56.2% 35 - 80 * r bc 4.73 3.5 - 5.5 * h gb 14.0 11.5 - 16.5 * h ct 41.3 35 - 55 * m cv 87.1 75 - 100 * m ch 29.6 25 - 35 * m chc 34.0 31 - 38 * p lat 262 100 - 400 * Marcella Nelson 06/26/2024 11:12:2 3 AM > , Provider reviewed results while patient in office. ?LAB: Covid test (in house) (Collection Date & Time - 06/26/2024)* Value Reference Range R esult: Neg * Pat Haji 06/26/2024 11: 19:00 AM > , Provider reviewed results while patient in office. * Procedure Codes: 8 7804 Flu Test- Nasal Swab, Modifiers: QW , 60758 CAPILLARY BLOOD DRAW, 88404 CBC WITH AUTO DIFF, 11358 COVID TEST IN HOUSE, Modifiers: QW , 56528 STREP A ASSAY W/OPTIC, Modifiers: QW , 3075F SYST BP GE 130 - 139MM HG, 3080F DIAST BP = 90 MM HG * Follow Up: p rn * Images: Billing Information: * Visit Code: 19536 Office Visit, Est Pt., Level 3. * Procedure Codes: 17632 Flu Test- Nasal Swab. Modifiers: QW 93245 CAPILLARY BLOOD DRAW. 47896 CBC WITH AUTO DIFF. 95990 COVID TEST IN HOUSE. Modifiers: QW 61283 STREP A ASSAY W/OPTIC. Modifiers: QW 3075F SYST BP GE 130 - 139MM HG. 3080F DIAST BP = 90 MM HG. * Electronic signature of MIKE Walters on 01/03/2025 at 09:45 AM EDT Sign off status: Pending * Provider: MIKE Bender Date: 0 06/26/2024 Generated for Luis Antonio lema/Dorothy/eTransmitting on: 0 01/03/2025 09:45 AM EDT History and Physical Notes * HPI (History of Present Illness) Category Sub-Category Detail Notes Category Not es ENT/respiratory sore throat cough Fever Examination Category Sub-Category Detail Notes Category Not es ENT/Respiratory Oral cavity : erythema without exudate on pharynx, less than when previously examined Sinuses : non tender bilateral ly Ears: auditory canals norm al bilaterally, TM's WNL Neck : supple, bilateral te nder lymphadenopathy Heart : RRR, normal S1 S2, n o murmurs Lungs: clear to auscultatio n bilaterally General Appearance: NAD Nose : clear rhinorrhea
--- OUTSIDE RECORDS SUMMARY | 2024-09-18 05:00 | XMS_ITS ---
Author Organization [facility] Address [address] [facility] [address] [place] [id number] Care Team Providers Care Cell Manager Name Role Phone Sathya Faria Primary Care Provider Cherie Holm Unavailable [phone] Paz Cameron Unavailable [phone] Allergies Allergen (clinical drug ingredient) Drug/Non Drug Allergy documented on EMR Reaction Allergy Type Onset Date Status Substance with penicillin structure and antibacterial mechanism of action (substance) Penicillins Unknown Drug Allergy Active REASON FOR VISIT 3 month check, Needs labs & colon cancer screening Social History Tobacco Use: Social History Observation Description Date Details (start date - stop date) Current Smoker NA - NA CURRENT TOBACCO USE: Question Answer Notes Are you a: current smoker How many cigarettes a day do you smoke? 5 or les s Encounters Encounter Location Date Provider Diagnosis You [address] [facility] [address] [place] [phone] 09/18/2024 Paz Cameron Plan Of Treatment No Information Progress Notes * DANIOLDB HarrisDOB:1975 ([age] yo M)Acc No.[id number]:09/18/2024 Progress Notes Patient: DB MIKE Provider: MIKE Bender :1975 A ge:48 Y S ex:Male Date:09/18/2024 Address:[address], [place] Pcp:Sathya Faria Subjective: * Chief Complaints: * 1 . 3 month check. 2. Needs labs & colon cancer screening. * HPI: H PI: 48 year old male presents with c/o Patient is here today for?Pt is here today for a 3 month check up. * ROS: D ERMATOLOGY: no R jaison. [...] Past smoking status: yes. Alcohol: rare. * Allergies: P enicillins. Objective: * Vitals: Assessment: Plan: * Treatment: * Images: Billing Information: * Visit Code: * Procedure Codes: * Electronic signature of MIKE Walters on 01/03/2025 at 09:44 AM EDT Sign off status: Pending * Provider: MIKE Bender Date: 0 09/18/2024 Generated for Luis Antonio lema/Dorohty/Fransico on: 0 01/03/2025 09:44 AM EDT History and Physical Notes * HPI (History of Present Illness) Category Sub-Category Detail Notes Category Not es HPI Patient is here today for Pt is here today for a 3 month check up
--- NOTE | 2025-01-03 09:16 | ECG_ITS ---
APPROVED REPORT Exam: Resting ECG HR:83 bpm ECG Measurements Heart Rate 83 AXES SD 142 P 76 QRSd 113 QRS 75 QT 375 T 42 QTc 415 Conclusion SINUS RHYTHM INCOMPLETE RIGHT BUNDLE BRANCH BLOCK [90+ ms QRS DURATION, TERMINAL R IN V1/V2, 40+ ms S IN I/aVL/V4/V5/V6] NO STEMI Electronically signed by : ANG BAEZ, 01/03/2025 19:06:55
--- NOTE | 2025-01-03 09:32 | XR_ITS ---
PROCEDURE INFORMATION: Exam: XR Chest Exam date and time: 01/03/2025 9:42 AM Age: 49 years old Clinical indication: Sternal or substernal pain; Additional info: Cp TECHNIQUE: Imaging protocol: Radiologic exam of the chest. Views: 2 views. COMPARISON: CR XR CHEST 2V 02/05/2019 11:48 AM FINDINGS: Lungs: Mild bronchial wall thickening centrally on the right. Lungs are well aerated without a focal area of consolidation. Pleural spaces: Unremarkable. No pleural effusion. No pneumothorax. Heart/Mediastinum: Unremarkable. No cardiomegaly. Bones/joints: Unremarkable. IMPRESSION: Lungs are well aerated without a focal area of consolidation.
[2025-01-03 09:36] VITALS: BP 125/73; PULSE 89; RESP 14; TEMP 37.2; O2SAT 100; BMI 30.7
[2025-01-03 09:40] LABS: Hematocrit 38.3 % (42.0-52.0); Hemoglobin 13.1 g/dL (14.1-18.0); Mean Corpuscular HGB Conc 34.2 g/dL (31.8-35.4); Mean Corpuscular Hemoglobin 29.6 pg (27.0-31.2); Mean Corpuscular Volume 86.5 fl (80-94); Platelet Count 254 K/mm3 (142-424); Red Blood Count 4.43 M/mm3 (4.60-6.20); White Blood Count 3.8 K/mm3 (4.8-10.8)
[2025-01-03 09:43] LABS: Lipase 47 U/L (23-300)
--- OUTSIDE RECORDS SUMMARY | 2025-01-03 09:45 | XMS_ITS | Patient Health Record ---
Author Organization [facility] Address [address] [place] [id number] Care Team Providers Care Safe Deposit Attendant Name Role Phone Sathya Faria Primary Care Provider [phone] Cherie Holm Unavailable [phone] Natalia Gallegos Unavailable [phone] Paz Cameron Unavailable [phone] Allergies Allergen (clinical drug ingredient) Drug/Non Drug Allergy documented on EMR Reaction Allergy Type Onset Date Status Substance with penicillin structure and antibacterial mechanism of action (substance) Penicillins Unknown Drug Allergy Active Results Component Value Reference Range Notes P-Lipid Panel Reviewed date:06/26/2024 01:15:02 PM Interpretation: Performing Lab: Notes/Report: Test performed by [facility] [address] , [address], [place] [address] Aries Huerta MD, Bed Laborer CLIA: [id number] Cholesterol 149 <200 mg/dL Triglycerides 132 <150 [...] Results: 97 Units: mg/dL % Change: -4% P-Comprehensive Metabolic Pa fernando (CMP) Reviewed date:06/26/2024 01:14:55 PM Interpretation: Performing Lab: Notes/Report: Test performed by [facility] [address] [place] [address] , [place] [address] Aries Huerta MD, Bed Laborer MARYIA: [id number] Sodium 138 135-145 mmol/L Potassium 4.7 3.5-5.3 [...] 0.2 <0.2-1.2 mg/dL A/G Ratio 1.8 1.1-2.5 Glycohemoglobin A1c (in hous e) Reviewed date:06/25/2024 10:47:49 AM Interpretation: Performing Lab: Notes/Report: glycohemoglobin 6.8% 5 - 6.5 % CBC Venipuncture (in house) Reviewed date:06/19/2024 12:43:36 [...] - 38 platlet 189 100 - 400 Rapid Strep- Inhouse Reviewed date:06/19/2024 12:43:26 PM Interpretation: Performing Lab: Notes/Report: strep test Pos Covid test (in house) Reviewed date:06/26/2024 01:14:32 PM Interpretation: Performing Lab: Notes/Report: Result: Neg CBC Fingerstick (in house) Reviewed date:06/26/2024 [...] - 38 plat 262 100 - 400 Rapid Strep- Inhouse Reviewed date:06/26/2024 01:14:32 PM Interpretation: Performing Lab: Notes/Report: strep test Neg Influenza Screen (in house) Reviewed date:06/26/2024 01:14:32 PM Interpretation: Performing Lab: Notes/Report: results Neg Glycohemoglobin A1c (in hous e) Reviewed date:03/21/2024 04:47:16 PM Interpretation:6.8 Performing Lab: Notes/Report: 6.8 glycohemoglobin 6.8% 5 - 6.5 % P-Comprehensive Metabolic Pa fernando (CMP) Reviewed date:03/21/2024 04:47:16 PM Interpretation: Performing Lab: Notes/Report: Test performed by [facility] [address] [place] [address] , [address], [place] [address] Aries Huerta MD, Bed Laborer CLIA: [id number] Sodium 138 135-145 mmol/L Potassium 4.4 3.5-5.3 mmol/L Chloride 103 97-108 mmol/L CO2 24 22-32 mmol/L Glucose 122 65-99 mg/dL BUN 12 6-20 mg/dL Creatinine 0.82 0.70-1.30 mg/dL Calcium 9.9 8.6-10.4 mg/dL eGFR by Creatinine 109 >59 mL/min/1.73m2 Protein 7.0 6.0-8.3 g/dL Albumin 4.7 3.5-5.3 g/dL Alkaline Phosphatase 78 40-129 IU/L ALT (SGPT) 25 <5-55 IU/L AST (SGOT) 16 <5-46 IU/L Bilirubin, Total 0.3 <0.2-1.2 mg/dL A/G Ratio 2.0 1.1-2.5 P-Lipid Panel Reviewed date:03/21/2024 04:47:16 PM Interpretation: Performing Lab: Notes/Report: Test performed by [facility] [address] [place] [address] , [address], [place] [address] Aries Huerta MD, Bed Laborer CLIA: [id number] Cholesterol 163 <200 mg/dL Triglycerides 172 <150 mg/dL HDL Cholesterol 27 >39 mg/dL Cholesterol / HDL Ratio 6.04 0.00-4.99 Ratio Non-HDL Cholesterol 136 <130 mg/dL LDL Cholesterol (Calculation) 102 <130 mg/dL LDL Cholesterol Levels* Less than 100 mg/dL Optimal 100 to 129 mg/dL Near Optimal/ Above Optimal 130 to 159 mg/dL Borderline High 160 to 189 mg/dL High 190 mg/dL and above Very High * Categories as recommended by the 2004 ATPIII guidelines LDL/HDL Ratio 3.8 <3.3 Ratio LDL Cholesterol Patient History Test Date: 12/23/2022 LDL Results: 69 Units: mg/dL % Change: - Test Date: 12/20/2023 LDL Results: 104 Units: mg/dL % Change: +50% Test Date: 03/20/2024 LDL Results: 102 Units: mg/dL % Change: -1% P-TSH reflex to FT4 Reviewed date:03/21/2024 04:47:16 PM Interpretation: Performing Lab: Notes/Report: Test performed by [facility], [address] , [address], [place] [address] Aries Huerta MD, Bed Laborer CLIA: [id number] TSH reflex to FT4 2.27 0.43-5.25 mU/L Medications Medication SIG (Take, Route, Frequency, Duration) Notes Start Date End Date Status Citalopram Hydrobromide 40 mg 1 tablet Orally Once a day; Duration: 30 days Active Care[facility] CPAP & BIPAP Hose 1 DIRECTED Active Gabapentin 400 MG 1 cap(s) orally 3 ti mes a day; Duration: 30 days 11/22/2024 Active Medrol 4 MG as directed orally d aily; Duration: 6 days 06/26/2024 Active Esomeprazole Magnesium 40 mg 1 capsule Orally once daily; Duration: 30 days Active metFORMIN HCl ER 500 MG 1 tablet with ev ening meal Orally Once a day; Duration: 90 days Active Fenofibrate 145 mg 1 tablet Orally once daily; Duration: 30 days Active Immunizations Vaccine Route Administration Date Status Comme nts DT, 7 YEARS OR OLDER Unknown 07/14/1996 Administered Social History Tobacco Use: Social History Observation Description Date Details (start date - stop date) Current Smoker NA - NA CURRENT TOBACCO USE: Question Answer Notes Are you a: current smoker How many cigarettes a day do you smoke? 5 or les s Problems Problem Type SNOMED Code ICD Code Onset Dates Problem Status W/U Status Risk Notes Problem Hypertension (73573181) Hypertension NOS (401.9) Active confirmed Problem Hyperglycemia (37269233) Hyperglycemia (R73.9) Active confirmed Problem Hyperlipidemia (91689990) Hyperlipidemia (E78.5) Active confirmed Problem Hypertriglyceridemia (525723599) Hypertriglyceridemia (E78.1) Active confirmed Problem Mixed anxiety and depressive disorder (464746887) Depression with anxiety (F41.8) Active confirmed Problem Screening for malignant neoplasm of prostate (555267996) Screening for prostate cancer (Z12.5) Active confirmed Problem Dysthymia (01135382) Dysthymic d isorder (F34.1) Active confirmed Problem Chronic pain syndrom e (445012733) Chronic pain syndrome (G89.4) Active confirmed Problem Gastroesophageal reflux disease without esophagitis (602065714) Gastroesophageal reflux disease without esophagitis (K21.9) Active confirmed Problem Sciatica (31480284) Bilateral lo w back pain with left-sided sciatica (M54.42) Active confirmed Problem Displacement of lumbar intervertebral disc without myelopathy (97298287) Bulging lumbar disc (M51.26) Active confirmed Problem Arthropathy of lumba r facet joint (445352849) Lumbar facet arthropathy (M46.96) Active confirmed Problem Obstructive sleep apnea syndrome (02489162) CASANDRA (obstructive sleep apnea) (G47.33) Active confirmed Problem Seasonal allergic rhinitis (804610503) Seasonal allergic rhinitis, unspecified allergic rhinitis trigger (J30.2) Active confirmed Problem Obstructive sleep apnea syndrome (02762639) Mild obstructive sleep apnea (G47.33) Active confirmed Problem Type II diabetes mellitus without complication (346983858) Type 2 diabetes, HbA1c goal < 7% (E11.9) Active confirmed Vital Signs Heart Rate 80 /min 06/26/2024 Blood pressure diastolic 90 mm Hg 06/26/2024 Height 71.50 in 06/26/2024 Blood pressure systolic 130 mm Hg 06/26/2024 Weight 228.4 lbs 06/26/2024 BMI 31.41 kg/m2 06/26/2024 Encounters Encounter Location Date Provider Diagnosis [facility] [place] [address] [id number] 03/20/2024 Paz Crowdy Hypertriglyceridemia E78.1 ; Depression with anxiety F41.8 ; Gastroesophageal reflux disease without esophagitis K21.9 ; Mild obstructive sleep apnea G47.33 and Type 2 diabetes, HbA1c goal < 7% E11.9 [facility] [place] [facility] [place] [facility] [address] [id number] 06/19/2024 Paz Crowdy Strep pharyngitis J0 2.0 ; Hypertriglyceridemia E78.1 ; Depression with anxiety F41.8 ; Gastroesophageal reflux disease without esophagitis K21.9 ; Mild obstructive sleep apnea G47.33 and Type 2 diabetes, HbA1c goal < 7% E11.9 [facility] [address] [place], [place] [id number] 06/26/2024 Paz Rakesh Acute URI J06.9 [facility] [address] [facility] [address] [place], [place] [id number] 02/08/2024 R Enrrique Gallegos Bulging lumbar disc M51.26 [facility] [address] [place], [place] [id number] 03/07/2024 Sathya Faria Type 2 diabetes, HbA 1c goal < 7% E11.9 [facility] [address] [place], [place] [id number] 03/21/2024 Paz Cameron [facility] [address] [facility] [address] [place], [place] [id number] 03/28/2024 Sathya Faria [facility] [address] [facility] [address] [place], [place] [id number] 05/02/2024 Paz Cameron Gastroesophageal ref lux disease without esophagitis K21.9 [facility] [address] [facility] [address] [place], [place] [id number] 05/10/2024 Sathya Faria Bulging lumbar disc M51.26 [facility] [address] [facility] [address] [place] [id number] 06/13/2024 Sathya Faria [facility] [address] [facility] [address] [place] [id number] 06/25/2024 Paz Cameron [facility] [address] [facility] [address] [place] [id number] 11/22/2024 Sathya Faria Bulging lumbar disc M51.26 [facility] [address] [facility] [address] [place], [place] [id number] 11/29/2024 Sathya Faria Assessments Encounter Date Diagnosis (ICD Code) Assessment Notes Treatment Notes Treatment Clinical Notes Section Notes 02/08/2024 Bulging lumbar disc (ICD-10 - M51.26) 03/07/2024 Type 2 diabetes, HbA 1c goal < 7% (ICD-10 - E11.9) 03/20/2024 Hypertriglyceridemia (ICD-10 - E78.1) 03/20/2024 Depression with anxi ety (ICD-10 - F41.8) 05/02/2024 Gastroesophageal ref lux disease without esophagitis (ICD-10 - K21.9) 05/10/2024 Bulging lumbar disc (ICD-10 - M51.26) 06/19/2024 Strep pharyngitis (ICD-10 - J02.0) 06/19/2024 Hypertriglyceridemia (ICD-10 - E78.1) 11/22/2024 Bulging lumbar disc (ICD-10 - M51.26) 06/26/2024 Acute URI (ICD-10 - J06.9) 06/19/2024 Depression with anxi ety (ICD-10 - F41.8) 03/20/2024 Gastroesophageal ref lux disease without esophagitis (ICD-10 - K21.9) 03/20/2024 Mild obstructive sle ep apnea (ICD-10 - G47.33) 06/19/2024 Gastroesophageal ref lux disease without esophagitis (ICD-10 - K21.9) 06/19/2024 Mild obstructive sle ep apnea (ICD-10 - G47.33) 03/20/2024 Type 2 diabetes, HbA 1c goal < 7% (ICD-10 - E11.9) 06/19/2024 Type 2 diabetes, HbA 1c goal < 7% (ICD-10 - E11.9) Plan Of Treatment Pending Test Test Name Order Date Lipid Profile 11/17/2020 TSH 11/17/2020 CMP 11/17/2020 CBC 11/17/2020 H-Glycohemoglobin A1C 08/20/2021 Insurance Providers Payer Name Payer Address Payer Phone Subscriber Number Group Number Insured Name Patient Relationship to Insured Coverage Start Date Coverage End Date [employer] [facility] [id number] [place], [place] [id number] DB OCONNOR Self - patient is the insured Medications Administered Medication Instructions Date of Administration Dosage Notes celestone 01/26/2018 1 mL xAdministration of injection 01/26/2018 5 mL Lidocaine 1% (no epi) xAdministration of injection 01/26/2018 0.5 mg Sodium Bicarbona te Medical (General) History Medical History History ICD Code anxiety Esophageal reflux Palpitations L5-S1 disc bulge, MRI 2007 low back pain Lumbar facet arthropathy hypertriglyceridemia CASANDRA Surgical History Surgery Date(Month/Year) Hospitalization History Reason Date(Month/Year)
[2025-01-03 10:00] VITALS: BP 132/64; PULSE 88; RESP 17; O2SAT 99
[2025-01-03 10:01] LABS: Troponin I < 0.01 ng/ml (0.00-0.034)
[2025-01-03 10:14] LABS: RBC Morphology Normal; Total Cells Counted 100
--- NOTE | 2025-01-03 10:16 | HMH.EDGENADL ---
Discharge Plan Disposition Patient Disposition: Home, Self-Care Condition: Good Prescriptions Prescriptions: No Action fenofibrate nanocrystallized 145 mg tablet 145 mg PO DAILY metformin 500 mg tablet extended release 24 hr 500 mg PO ONCE Rx Instructions: Take 1 tablet by mouth every evening esomeprazole magnesium [Nexium] 40 mg capsule,delayed release(DR/EC) 40 mg PO DAILY gabapentin 400 mg capsule 400 mg PO TID Patient Comments: TAKE ONE CAPSULE BY MOUTH THREE TIMES DAILY MAY CAUSE DROWSINESS citalopram 40 MG tablet 40 mg PO DAILY Referrals Follow up/Referrals: Provider,Referral, MD [Primary Care Provider, Medical] - See instructions Activity Restrictions/Add. Instructions Additional Instructions/Restrictions: You were seen in the emergency department for chest pain. Your laboratory and imaging workup was negative. If symptoms worsen, or new symptoms develop, please return to the emergency department. Please follow-up with your PCP outpatient. Clinical Impressions Clinical Impression: Chest pain, muscular Instructions Patient Instructions: DI for Atypical Chest Pain Print Language Print Language: Serbian Discharge ED Provider: Sarthak Saenz Adult [facility] General Chief complaint: Chest Pain Stated complaint: CP Time Seen by Provider: 01/03/25 09:27 Mode of Arrival: Ambulatory Source of Information: Patient Description of Symptoms (Recalled from ER Triage Doc. by RN): pt c/o intermittant sternal chest pain ongoing since yesterday. No pain at this time, however, he had it [employer]. pt describes the pain as muscle spasms. pt denies injury. pt has no cardiac hx. pt reports he has a hx of anxiety and this feels similar to his panic attacks. History of Present Illness HPI narrative: This patient has a past medical history of anxiety. He presents to the emergency department with 2 episodes of brief substernal chest pain. He reports that last night he felt a twinge of pain that lasted for several seconds at the lower left border of his sternum. He had a similar episode this morning. He has not had any persistent chest pain, chest pain is not reproducible on exam. The patient reports that it felt most like a muscle spasm. The patient reports that he presented to the anxiety today in large part because of severe anxiety regarding health issues. Related Data Home Medications ?Medication ?Instructions ?Recorded ?Confirmed citalopram 40 mg tablet 40 mg PO DAILY Depression 08/25/17 09/05/24 esomeprazole magnesium 40 mg 40 mg PO DAILY 05/28/18 09/05/24 capsule,delayed release (Nexium) fenofibrate nanocrystallized 145 145 mg PO DAILY 06/02/21 09/05/24 mg tablet gabapentin 400 mg capsule 400 mg PO TID 09/07/23 09/05/24 metformin 500 mg tablet,extended 500 mg PO ONCE 04/10/24 09/05/24 release 24 hr Allergies Allergy/AdvReac Type Severity Reaction Status Date / Time Penicillins Allergy Unknown Verified 01/03/25 09:46 allergy reaction [facility] Disclaimer: The information contained in this section may have been updated after the patient was seen, as this information can be updated by other users. Medical History Anxiety CASANDRA (obstructive sleep apnea) Surgical History History of cholecystectomy Family History Other Diabetes Hyperlipidemia Hypertension Stroke Social History Smoking Status: Current every day smoker tobacco type: e-cigarettes alcohol intake: former substance use type: denies use current occupational status: employed Travel in the last 8 weeks?: None household members: spouse and family housing: house Have you lived/traveled outside US in past 30 days?: No Contact w/someone who lives/traveled outside US past 30 days?: No Exposure to someone with infectious disease in past 14 days?: No Do you have a fever (greater than 100.4 F or 38 C)?: No Have you tested positive for COVID-19?: No Exposed to someone with COVID-19 in past 14 days?: No Do you have a sore throat?: No Do you have a cough?: No Do you have any weakness?: No Do you have any diarrhea?: No Are you experiencing any unusual bleeding?: No Do you have any muscle aches/pain?: No Do you have any abdominal pain?: No Are you experiencing loss of taste or smell?: No Other Medical History Have you received the Flu Vaccine for this season: No Have you received the Pneumonia Vaccine: No ROS Obtained: Yes All systems reviewed & no additional complaints except as documented Physical Exam General General appearance: alert and in no apparent distress Head Head exam: atraumatic and normocephalic Eye Eye exam: Present normal appearance, PERRL and EOMI ENT ENT exam: Present normal exam and normal external ear exam Neck Neck exam: Present normal inspection, full ROM and trachea midline Chest Chest inspection: Present normal inspection and symmetric chest wall rise; Absent tenderness Respiratory Respiratory exam: Absent respiratory distress Cardiovascular Cardiovascular exam: Present regular rate, normal rhythm and other (appears warm and well perfused) Abdominal Exam Abdominal exam: Absent distention or tenderness exam: Absent deferred Extremities Exam Extremities exam: Present normal inspection and full ROM Neurological Exam Neurological exam: Present alert and oriented X3 Psychiatric Psychiatric exam: Present normal affect Skin Skin exam: Present warm and dry Medical Decision Making Medical Records Medical records reviewed: Yes I reviewed the patient's medical records. Screening: Per USPSTF and CDC recommendations, given the prevalence of disease in our region, it is our hospital?s policy to screen for HIV and viral Hepatitis for all patients aged 18 and over and those with ongoing risk factors. Itz Inquiry Pt receiving controlled substance: No Itz was queried for this patient: No Vital Signs: 01/03/25 09:36 01/03/25 10:00 01/03/25 10:53 Temperature 99 F 99 F Temperature Source Oral Pulse Rate 88 82 Pulse Rate [Left] 89 Respiratory Rate 14 17 16 Blood Pressure 132/64 127/62 Blood Pressure [Right Arm] 125/73 Blood Pressure Mean 79 Blood Pressure Mean [Right Arm] 90 Blood Pressure Source [Right Arm] Automatic Cuff Blood Pressure Position [Right Arm] Sitting 02 Sat by Pulse Oximetry 100 99 Oxygen Delivery Method Room Air Room Air Lab Data Lab results reviewed: Yes I reviewed the patient's lab results. Lab Results 01/03/25 09:23: WBC 3.8 L, RBC 4.43 L, Hgb 13.1 L, Hct 38.3 L, MCV 86.5, MCH 29.6, MCHC 34.2, RDW 12.0, Plt Count 254, MPV 9.2, Neut % (Auto) 52.0, Lymph % (Auto) 35.9, Benson % (Auto) 9.2, Eos % (Auto) 2.1, Baso % (Auto) 0.5, Neut # (Auto) 2.0, Lymph # (Auto) 1.4, Benson # (Auto) 0.4, Eos # (Auto) 0.1, Baso # (Auto) 0.0, Total Counted 100, Neutrophils % (Manual) 45, Lymphocytes % (Manual) 36, Monocytes % (Manual) 16 H, Eosinophils % (Manual) 3, Platelet Estimate Normal, RBC Morphology Normal, Troponin I < 0.01, Lipase 47 01/03/25 09:23 Orders (Tests/Meds): ORDERS Category Date Time Status CXR 2 view (NOT portable) [XR chest 2V] Stat Exams 01/03/25 09:32 Completed CBC Man Diff [Complete Blood Count Man Dif] Stat Lab 01/03/25 09:23 Completed Lipase Stat Lab 01/03/25 09:23 Completed Troponin I Q3H Lab 01/03/25 09:23 Completed HEART Score History (anamnesis): Slightly suspicious ECG: Normal Age: 45-65 years Risk factors: No known risk factors Troponin: </= normal limit HEART Score: 1 Medical Decision Narrative: MDM In summary, this 49-year-old male presents to the emergency department today with paroxysmal chest pain. Initial evaluation the patient the patient is comfortable and hemodynamically stable with no ongoing chest pain. Differential diagnosis includes but is not limited to ACS, WI, pulmonary embolism, pneumonia. Based on these concerns, I ordered a comprehensive laboratory and imaging workup. ECG personally interpreted by me demonstrates normal sinus rhythm. Labs personally reviewed and interpreted demonstrate no leukocytosis, mild anemia troponin below detectable levels, lipase within normal limits. X-rays personally interpreted by me demonstrate normal cardiopulmonary silhouette, no concerning findings, no consolidation. I debated pursuing CT imaging for this patient to rule out pulmonary embolism, however due to the lack of shortness of breath, tachycardia, or pleuritic chest pain I did not feel that it was necessary. The patient was reassessed and found to be comfortable, hemodynamically stable, with no repeat episodes of chest pain. Based on the patient's very reassuring workup, and relatively benign symptoms, I felt comfortable with discharge to home. The patient was agreeable with this plan. Critical Care Critical Care Time Critical Care Time: No
[2025-01-03 10:53] VITALS: BP 127/62; PULSE 82; RESP 16; TEMP 37.2; O2SAT 99
== END 2025-01-03 11:01 | disposition home or self-care (01) ==
PROVIDERS: Emergency Provider Student in an Organized Health Care Education/Training Program
DX: R07.89 Other chest pain (principal); F17.290 Nicotine dependence, other tobacco product, uncomplicated
CPT/HCPCS: 71046; 83690; 84484; 85007; 85014; 85018; 85048; 85049; 93005; 99284